=== PATIENT | female | born 1980 | race Caucasian/White ===

== ENCOUNTER 2017-03-27 19:15 | Emergency (ER) | payer OTHER, BC ==
[2017-03-27] MEDS ORDERED: Lidocaine 1% with EPINEPHrine 1:100,000 20 ML MDV INJECT ONE (19:33)
[2017-03-27] MEDS ORDERED: Diphtheria,Pertussis(Acell),Tetanus Vaccine 0.5 ML Syringe IM ONE (20:08)
[2017-03-27] MEDS ORDERED: Amoxicillin/Clavulanate K 875-125 MG Tab PO ONE (20:17)
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
[2017-03-27] MEDS ORDERED: Bacitracin Oint 1 GM U/D Packet TOP ONE (21:02)
[2017-03-27 21:45] VITALS: BP 113/76
== END 2017-03-27 21:39 | disposition home or self-care (01) ==
LOC: MW.ED 19:15
DX: S41.111A Laceration without foreign body of right upper arm, initial encounter (principal); W54.0XXA Bitten by dog, initial encounter; Y92.009 Unspecified place in unspecified non-institutional (private) residence as the place of occurrence of the external cause
CPT/HCPCS: 12002; 90715; 96372; 99283; A9270